=== PATIENT | male | born 1995 | race African-American/Black ===

== ENCOUNTER 2019-03-04 09:23 | Emergency (ER) | payer OTHER ==
[~2019-03-04] VITALS: Ht 182.9 cm; Wt 72.6 kg
--- NOTE | 2019-03-04 09:35 | NUR ---
PATIENT MARYAN MARTINEZ. PATIENT IN CUSTODY. AWAKE, A/O X 4. WITH REPORT OF PATIENT HAVING A "NEAR FAITING" EPISODE WHILE AT COURT. NO ACUTE DISTRESS. DR SAWYER AT BEDSIDE.
--- NOTE | 2019-03-04 10:14 | NUR ---
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 Written and verbal after care instructions given. Patient verbalizes understanding of instruction.
[2019-03-04 10:17] VITALS: BP 111/61
== END 2019-03-04 10:17 ==
LOC: ER 09:25
DX: R53.1 Weakness (principal); R55 Syncope and collapse; T43.215A Adverse effect of selective serotonin and norepinephrine reuptake inhibitors, initial encounter; Y92.89 Other specified places as the place of occurrence of the external cause